=== PATIENT | male | born 1965 | race Caucasian/White ===

== ENCOUNTER 2019-12-12 12:33 | Inpatient (IN) ==
[2019-12-12] MEDS ORDERED: *HR* LORazepam 2 MG/ML VIAL ONE (16:34)
[2019-12-12] MEDS ORDERED: *HR* HYDROcodone/Acet 10/325 mg TABLET PO PRN (17:20)
[2019-12-12] MEDS ORDERED: Ondansetron ODT 4 MG TAB.RAPDIS PO PRN (17:20)
[2019-12-12] MEDS ORDERED: Lidocaine OINT 35.44 GM TUBE TP PRN (17:20)
[2019-12-12] MEDS ORDERED: *HR* HYDROmorphone 2 MG/ML SYRINGE IVP PRN (17:22)
[2019-12-12] MEDS ORDERED: *HR* LORazepam 1 MG TABLET PO PRN (17:28)
[2019-12-12] MEDS ORDERED: *HR* FentaNYL PATCH 50 MCG PATCH TD SCH (17:30)
[2019-12-12] MEDS: *HR* HYDROmorphone 2 MG/ML SYRINGE IVP PRN (18:28)
[2019-12-12] MEDS ORDERED: Nicotine 21 MG PATCH.TD24 TD SCH (18:45)
[2019-12-12] MEDS ORDERED: Sennosides/Docusate Sodium TABLET PO SCH (21:00)
[2019-12-12] MEDS ORDERED: Apixaban 5 MG TABLET PO SCH (21:00)
[2019-12-12] MEDS ORDERED: Baclofen 10 MG TABLET PO SCH (21:00)
[2019-12-12] MEDS ORDERED: dexAMETHasone 4 MG TABLET PO SCH (21:00)
[2019-12-12] MEDS ORDERED: Gabapentin 300 MG CAPSULE PO SCH (21:00)
[2019-12-13 02:17] VITALS: BP 129/73
[2019-12-13] MEDS: *HR* HYDROmorphone 2 MG/ML SYRINGE IVP PRN ×2 (02:40→05:26)
[2019-12-13 04:55] LABS: Basophils % 0.1 %; Eosinophils % 0.1 %; Hematocrit 28.4 % (37.5-50.1); Hemoglobin 8.7 g/dL (12.9-16.9); Immature Granulocytes % 2.3 % (0-4); Lymphocytes # 0.5 K/mcL (0.6-4.6); Lymphocytes % 3.2 %; Mean Corpuscular HGB Conc 30.6 g/dL (31.6-35.5); Mean Corpuscular Hemoglobin 25.8 pg (28.0-33.3); Mean Corpuscular Volume 84.3 fL (83.0-100.0); Mean Platelet Volume 11.3 fL (9.4-12.4); Monocytes # 0.5 K/mcL (0.0-1.3); Monocytes % 2.7 %; Neutrophils # 15.1 K/mcL (1.6-8.9); Platelet Count 110 K/mcL (140-400); Red Blood Count 3.37 M/mcL (4.19-5.50); Red Cell Distribution Width 20.6 % (11.5-14.5); Segmented Neutrophils % 91.6 %; White Blood Count 16.5 K/mcL (4.3-11.1)
[2019-12-13 05:15] LABS: BUN/Creatinine Ratio 34 (6-26); Blood Urea Nitrogen 13 mg/dL (6-20); Calcium 7.7 mg/dL (8.6-10.3); Carbon Dioxide 28 mEq/L (23-29); Chloride 98 mEq/L (98-107); Glucose 99 mg/dL (70-105); Osmolality,Calculated 274 (280-300); Potassium 4.2 mEq/L (3.5-5.1); Sodium 132 mEq/L (136-145); eGFR For African Americans > 60 (> 60); eGFR For Non-African Americans > 60 (> 60)
[2019-12-13] MEDS ORDERED: *HR* LORazepam 2 MG/ML VIAL IVP ONE (05:22)
[2019-12-13] MEDS ORDERED: polyethylene glycoL 3350 17 GM POWD.PACK PO SCH (09:00)
== END 2019-12-13 07:09 | disposition other institution (70) | DRG 947 ==
LOC: INPGRE
PROVIDERS: ADMIT Family Medicine; ATTEND Family Medicine